=== PATIENT | female | born 1965 | race African-American/Black ===

== ENCOUNTER 2023-06-26 14:38 | Outpatient (REF) | payer BC, SELFPAY ==
[2023-06-26 16:20] LABS: Vitamin B12 325 pg/mL (200-900)
== END 2023-06-26 14:39 | disposition home or self-care (01) ==
LOC: HO.LAB 14:38
PROVIDERS: PCP Internal Medicine; Visit Provider Psychiatry & Neurology Neurology
DX: G31.84 Mild cognitive impairment of uncertain or unknown etiology (principal)
CPT/HCPCS: 36415; 82607

== ENCOUNTER 2023-07-16 18:40 | Outpatient (REF) | payer BC, SELFPAY | END 2023-07-16 18:41 | disposition home or self-care (01) | LOC: HO.MRI 18:40 | PROVIDERS: PCP Internal Medicine; Visit Provider Psychiatry & Neurology Neurology | DX: Z13.89 Encounter for screening for other disorder (principal) ==

== ENCOUNTER 2023-09-24 10:23 | Outpatient (REF) | payer BC, SELFPAY ==
--- NOTE | ~2023-09-24 | MR_ITS ---
EXAMINATION: MR BRAIN WITHOUT CONTRAST CLINICAL INFORMATION: Mild cognitive impairment COMPARISON: None available. TECHNIQUE: MRI of the brain was obtained using routine sequences without contrast. FINDINGS: No acute intracranial hemorrhage or infarct. Several scattered periventricular and deep white matter T2/FLAIR hyperintensities, nonspecific however commonly seen with small vessel ischemic disease. No midline shift or hydrocephalus. No acute extra-axial fluid collections. The osseous structures are unremarkable. The pituitary gland, pineal gland and remaining midline structures are unremarkable. No orbital pathology. The paranasal sinuses and mastoid air cells are clear. MR/MR head/brain wo con IMPRESSION: 1. No acute intracranial abnormalities. 2. Chronic microangiopathy. Electronically signed by: Patricia Lemus MD 10/22/2023 04:26 PM EDT
== END 2023-09-24 10:24 | disposition home or self-care (01) ==
LOC: HO.MRI 10:23
PROVIDERS: PCP Internal Medicine; Visit Provider Psychiatry & Neurology Neurology
DX: G31.84 Mild cognitive impairment of uncertain or unknown etiology (principal)
CPT/HCPCS: 70551